=== PATIENT | female | born 1955 | race Hispanic/Latino ===

== ENCOUNTER → 2020-08-02 | Outpatient (CLI) | payer OTHER | END | disposition home or self-care (01) | LOC: OIH 15:52 | PROVIDERS: ATTEND Internal Medicine | DX: M17.10 Unilateral primary osteoarthritis, unspecified knee (principal); M85.88 Other specified disorders of bone density and structure, other site | CPT/HCPCS: 73560 ==

== ENCOUNTER 2024-01-12 05:00 | Observation (INO) | payer OTHER ==
[2024-01-07 10:20] VITALS: BP 150/82; PULSE 81; RESP 15
[~2024-01-12] VITALS: Ht 144.8 cm; Wt 92.9 kg
[2024-01-12] VITALS (26 sets, daily range): BP systolic 125–181; BP diastolic 46–83; PULSE 71–97; RESP 13–20; O2SAT 95–98
[~2024-01-12 05:00] MED LIST: AEC81 PO; ATOR40TA71 PO; BACL10TA PO; BIOT5000 PO; CHOL2000 PO; CYAN-106 PO; GLUC1TAB22 PO; LATA2.5D14 OU; LOSA25TA41 PO; MELO-108 PO; METF-446 PO; OMEG-227 PO; SITA50TA PO
[2024-01-12] MEDS ORDERED: CEFAZOLIN SODIUM 2 GM VIAL IVPB PRN (06:00)
[2024-01-12] MEDS: 0.9%NACL 1000ML 1,000 ML IV ONE (06:20)
[2024-01-12] MEDS ORDERED: MIDAZOLAM HCL 1 MG/ML 2ML VIAL ONE (07:04)
[2024-01-12] MEDS ORDERED: LIDOCAINE PF 100MG/5ML (2%) SYRINGE 5ML ONE (07:07)
[2024-01-12] MEDS ORDERED: PROPOFOL 10 MG/ML 20ML VIAL IV ONE (07:07)
[2024-01-12] MEDS ORDERED: TRANEXAMIC ACID 1000MG/10ML ONE (07:26)
[2024-01-12] MEDS: CEFAZOLIN SODIUM 2 GM VIAL IVPB ONE (07:30)
[2024-01-12] MEDS: TRANEXAMIC ACID 1000MG/10ML IV ONE ×2 (07:30→08:50)
[2024-01-12] MEDS ORDERED: DEXAMETHASONE SOD PHOSPHATE 4 MG/ML 1ML VIAL ONE (07:34)
[2024-01-12] MEDS ORDERED: PHENYLEPHRINE HCL 10 MG/ML 1ML VIAL IV ONE (07:34)
[2024-01-12] MEDS ORDERED: ONDANSETRON 4MG INJ ONE (07:35)
[2024-01-12] MEDS: 0.9%NACL 48.45 ML, ROPIVACAINE 0.5% 49.25ML, EPINEPH 0.5MG KETOROLAC 30MG,CLONIDINE 80MCG IV PRN (07:46)
[2024-01-12] MEDS ORDERED: CEFAZOLIN SODIUM 1 GM VIAL ONE (07:48)
[2024-01-12] MEDS ORDERED: TOBRAMYCIN SULFATE 40MG/1ML VIAL ONE (07:48)
[2024-01-12] MEDS ORDERED: DEXAMETHASONE SOD PHOSPHATE 10MG/ML 1ML VIAL ONE (07:51)
[2024-01-12] MEDS ORDERED: DiphenhydrAMINE HCL 50 MG/ML VIAL IM PRN (13:30)
[2024-01-12] MEDS ORDERED: BENZOCAINE/MENTH/CETYLPYRD CL 1 EACH LOZENGE MM PRN (13:30)
[2024-01-12] MEDS ORDERED: DIPHENOXYLATE HCL/ATROPINE 2.5/0.025 MG TAB PO PRN (13:30)
[2024-01-12] MEDS ORDERED: LACTULOSE 20 GM/30 ML UDCUP PO PRN (13:30)
[2024-01-12] MEDS ORDERED: ZINC OXIDE OINT 30GM TUBE TP PRN (13:30)
[2024-01-12] MEDS ORDERED: DIPHENHYDRAMINE HCL 25 MG CAPSULE PO SCH (13:30)
[2024-01-12] MEDS ORDERED: ONDANSETRON 4MG INJ IVP PRN (13:30)
[2024-01-12] MEDS ORDERED: DIPHENHYDRAMINE HCL 25 MG CAPSULE PO PRN (13:30)
[2024-01-12] MEDS ORDERED: MAG/ALUM/SIMETH 30 ML UDCUP PO PRN (13:30)
[2024-01-12] MEDS ORDERED: ACETAMINOPHEN 325 MG TAB PO SCH (13:30)
[2024-01-12] MEDS ORDERED: ACETAMINOPHEN 325 MG TAB PO PRN ×2 (13:30)
[2024-01-12] MEDS: 0.9%NACL 1000ML 1,000 ML IV SCH (14:35)
[2024-01-12] MEDS: HYDROMORPH /0.9% NACL/PF PCA 50 ML IV PRN (14:36)
[2024-01-12] MEDS: CEFAZOLIN SODIUM 2 GM VIAL IVPB SCH (14:36)
[2024-01-12] MEDS ORDERED: DEXTROSE 50%-WATER 50 ML DISP.SYRIN IV PRN (15:30)
[2024-01-12] MEDS ORDERED: GLUCAGON 1MG KIT 1 MG ML IM PRN (15:30)
[2024-01-12] MEDS: INSULIN HUMULIN R 100 UNIT/ML 3ML SQ SCH (17:20)
[2024-01-12] MEDS: ATORVASTATIN 40 MG TABLET PO SCH (21:53)
[2024-01-12] MEDS: LOSARTAN 25 MG TABLET PO SCH (21:53)
[2024-01-12] MEDS: METFORMIN HCL 500 MG TABLET PO SCH (21:54)
[2024-01-12] MEDS: LATANOPROST 2.5 ML DROPS OU SCH (21:55)
[2024-01-13] VITALS (7 sets, daily range): BP systolic 112–148; BP diastolic 42–68; PULSE 77–97; RESP 18–20; O2SAT 99
[2024-01-13 04:44] LABS: HEMATOCRIT 32.2 % (36-48); MEAN CORPUSCULAR HEMOGLOBIN 27.9 pg (27.0-33.0); MEAN CORPUSCULAR HGB CONC 33.2 g/dL (32.0-36.0); MEAN CORPUSCULAR VOLUME 84.1 fL (79-99); RED BLOOD CELL COUNT(AUTO) 3.83 MIL/uL (4.00-5.50); RED CELL DISTRIBUTION WIDTH 14.6 % (11.0-15.5); WHITE BLOOD COUNT (AUTO) 15.9 K/uL (4.8-10.8)
[2024-01-13 04:53] LABS: CREATININE 0.8 mg/dL (0.5-1.5); POTASSIUM 3.8 mmol/L (3.5-5.1)
[2024-01-13] MEDS: RIVAROXABAN 10 MG TABLET PO SCH (09:04)
[2024-01-13] MEDS: TRAMADOL HCL 50 MG TABLET PO PRN (09:05)
[2024-01-13] MEDS: ACETAMINOPHEN WITH CODEINE 1 TAB TAB PO PRN (18:11)
[2024-01-14] VITALS (7 sets, daily range): BP systolic 125–142; BP diastolic 54–94; PULSE 80–97; RESP 16–20; O2SAT 92–97
[2024-01-14 03:59] LABS: BASOPHILS # (AUTO) 0.06 K/uL (0.00-0.20); BASOPHILS % (AUTO) 0.5 % (0.0-5.0); EOSINOPHILS # (AUTO) 0.17 K/uL (0.00-0.70); EOSINOPHILS % (AUTO) 1.4 % (0.0-8.0); HEMATOCRIT 31.3 % (36-48); IMMATURE GRANULOCYTE ABSOLUTE 0.05 K/uL (0-1); LYMPHOCYTES # (AUTO) 3.4 K/uL (1.0-4.8); LYMPHOCYTES % (AUTO) 28.6 % (21.0-51.0); MEAN CORPUSCULAR HEMOGLOBIN 27.2 pg (27.0-33.0); MEAN CORPUSCULAR HGB CONC 31.9 g/dL (32.0-36.0); MEAN CORPUSCULAR VOLUME 85.1 fL (79-99); MONOCYTES % (AUTO) 8.5 % (3.0-13.0); NEUTROPHILS # (AUTO) 7.1 K/uL (1.8-7.7); NEUTROPHILS % (AUTO) 60.6 % (40.0-77.0); PLATELET COUNT (AUTO) 226 K/uL (130-400); RED BLOOD CELL COUNT(AUTO) 3.68 MIL/uL (4.00-5.50); RED CELL DISTRIBUTION WIDTH 14.8 % (11.0-15.5); WHITE BLOOD COUNT (AUTO) 11.8 K/uL (4.8-10.8)
[2024-01-14 04:09] LABS: CREATININE 0.7 mg/dL (0.5-1.5); POTASSIUM 3.5 mmol/L (3.5-5.1)
[2024-01-14] MEDS: FAMOTIDINE 20MG TAB PO SCH (09:08)
[2024-01-15] VITALS: BP 149/59; PULSE 89; RESP 18
== END 2024-01-15 01:45 ==
LOC: DAH 05:00 → DAHIP 05:01 → DAH 05:01 → 4CH 12:51
PROVIDERS: ADMIT Orthopaedic Surgery; ATTEND Orthopaedic Surgery
DX: M17.11 Unilateral primary osteoarthritis, right knee (principal); I12.9 Hypertensive chronic kidney disease with stage 1 through stage 4 chronic kidney disease, or unspecified chronic kidney disease; E11.22 Type 2 diabetes mellitus with diabetic chronic kidney disease; N18.2 Chronic kidney disease, stage 2 (mild); E11.51 Type 2 diabetes mellitus with diabetic peripheral angiopathy without gangrene; E11.40 Type 2 diabetes mellitus with diabetic neuropathy, unspecified; E11.42 Type 2 diabetes mellitus with diabetic polyneuropathy; I73.9 Peripheral vascular disease, unspecified; E03.9 Hypothyroidism, unspecified; E78.5 Hyperlipidemia, unspecified; E66.01 Morbid (severe) obesity due to excess calories; Z68.41 Body mass index [BMI] 40.0-44.9, adult; Z79.01 Long term (current) use of anticoagulants; Z79.84 Long term (current) use of oral hypoglycemic drugs; Z90.710 Acquired absence of both cervix and uterus; Z88.5 Allergy status to narcotic agent
CPT/HCPCS: 87641; 27447; 96365; 96366 ×4; 96368; 82948 ×11; 97161; 97012; 97116 ×4; 97530 ×10; 80048 ×2; 85027; 36415 ×2; 85025; A6260; J1100 ×2; G0378 ×57; A4510; A4663; J7120; A4215 ×2; A4649 ×4; J0690 ×4; J3490 ×3; J7030 ×2; J0171; J2001; J3260; J2250; J2704; J2405; J1885; J2795; J2371; J0735; A6223; C1763 ×2; C1776; A4223; A4222; A4221; A6450; J1815 ×2

== ENCOUNTER → 2024-02-10 | Outpatient (CLI) | payer OTHER | END | disposition home or self-care (01) | LOC: RAH 12:25 | PROVIDERS: ATTEND Internal Medicine | DX: M79.89 Other specified soft tissue disorders (principal); I82.409 Acute embolism and thrombosis of unspecified deep veins of unspecified lower extremity; R60.0 Localized edema | CPT/HCPCS: 93971 ==